=== PATIENT | female | born 1985 | race Caucasian/White ===

== ENCOUNTER 2022-12-24 15:58 | Inpatient (IN) ==
[2022-12-24] MEDS ORDERED: Dinoprostone 10 MG VAG.SUPP VAGINAL ONE (16:25)
[2022-12-24] MEDS ORDERED: Promethazine INJ(RESTRICTED) 25 MG/ML 1 ml VIAL IV PRN (16:25)
[2022-12-24] MEDS ORDERED: Lactated Ringers 1000 ml BAG 1,000 ML IV ONE (16:25)
[2022-12-24] MEDS ORDERED: Buffered Lidocaine 1% SYRIN 1 ml INTRADERM ONE (16:25)
[2022-12-24] MEDS ORDERED: Lidocaine 1% VIAL 10 MG/ML 30 ML VIAL INJ PRN (16:25)
[2022-12-24] MEDS ORDERED: Iron Sucrose 200 MG in NS 0.9% 100 ml BAG 100 ML IVPB ONE (16:32)
[2022-12-24] MEDS ORDERED: Calcium Carb (TUMS) 500 mg CHEW TAB PO PRN (16:40)
[2022-12-24 17:39] LABS: Hematocrit 27.4 % (35-45); Hemoglobin 9.1 g/dL (11.5-14.3); Mean Corpuscular Hemoglobin 29.8 pg (27-33); Mean Corpuscular Hgb Conc 33.3 g/dL (31-36); Mean Corpuscular Volume 89.5 fL (80-97); Mean Platelet Volume 10.2 fL (7.5-11.2); Platelet Count 165 10^3/uL (150-450); Red Blood Count 3.06 10^6/uL (3.63-4.92); Red Cell Distribution Width 13.2 % (12-17); White Blood Count 14.1 10^3/uL (3.8-11.8)
[2022-12-24 18:13] LABS: Urine Benzodiazepine Screen None Detected (None Detect); Urine Opiates Screen None Detected (None Detect)
[2022-12-24 18:22] LABS: Albumin 3.2 g/dL (3.2-5.2); Calcium 8.4 mg/dL (8.6-10.3); Potassium 3.8 mmol/L (3.5-5.0); Total Bilirubin 0.4 mg/dL (0.2-1.0)
[2022-12-24 18:28] LABS: Albumin/Globulin Ratio 1.5 (1-3); Creatinine, Serum 0.67 mg/dL (0.51-0.95); Globulin 2.2 g/dL (2-4); Total Protein 5.4 g/dL (6.4-8.9); eGFR CKD-EPI 115.4 (>60)
[2022-12-24 19:58] LABS: Anisocytosis 1+; Polychromasia 1+
[2022-12-24 20:01] LABS: ABS Eosinophils 0.1 10^3/uL (0.0-0.5); ABS Lymphocytes 2.7 10^3/uL (1.0-4.8); ABS Monocytes 1.5 10^3/uL (0.0-0.9); ABS Neutrophils 9.8 10^3/uL (1.5-7.6); ABS Nucleated RBC 0.02 10^3/ul; Eosinophil % 0.5 %; Lymphocyte % 19.4 %; Nucleated Red Blood Cells % 0.1 /100 WBC (0.0-0.4)
[2022-12-25] MEDS ORDERED: Oxytocin in LR 20,000 MILLI.UNIT/1,000 ML BAG IV SCH (09:20)
[2022-12-25] MEDS ORDERED: OBEPIDURAL (200 ML) 200 ML EPIDURAL ONE (11:28)
[2022-12-25] MEDS ORDERED: Lidocaine 1.5% EPI 1:200,000 30 ML SDV ONE (11:28)
[2022-12-25] MEDS: Lactated Ringers 1000 ml BAG 1,000 ML IV SCH ×2 (13:49→21:56)
[2022-12-25] MEDS ORDERED: Lactated Ringers 1000 ml BAG 1,000 ML IV ONE (14:13)
[2022-12-25] MEDS ORDERED: Phenylephrine 40 mcg/mL 10mL (400mcg) SYRINGE IV PUSH PRN ×2 (14:13)
[2022-12-25] MEDS ORDERED: Lactated Ringers 1000 ml BAG 500 ML IV PRN ×2 (14:13)
[2022-12-25] MEDS ORDERED: Sodium Citrate/Citric Acid LIQ 15 ML UDC PO PRN (14:13)
[2022-12-25 14:41] LABS: Urine Appearance Clear; Urine Bilirubin Negative (Negative); Urine Blood 1+ (Negative); Urine Color Straw; Urine Glucose Negative (Negative); Urine Ketones Negative (Negative); Urine Nitrite Negative (Negative); Urine Protein Negative (Negative); Urine Specific Gravity 1.003 (1.002-1.030); Urine Urobilinogen Negative (Negative)
[2022-12-25] MEDS: Acetaminophen IV 1 GM/100ML 1,000 MG/100 ML BAG IV SCH ×2 (14:58→21:46)
[2022-12-25] MEDS ORDERED: Lactated Ringers 1000 ml BAG 1,000 ML IV SCH (15:00)
[2022-12-25] MEDS ORDERED: OBEPIDURAL (200 ML) 200 ML EPIDURAL SCH (15:00)
[2022-12-25 15:12] LABS: Urine Bacteria Absent (Absent); Urine Red Blood Cell Trace(0-2/hpf) (Absent); Urine Squamous Epithelial Cell Present (Absent); Urine White Blood Cell Absent (Absent)
[2022-12-25] MEDS ORDERED: Bupivacaine 0.25% w/EPI 10 ML SDV ONE ×2 (15:32→21:51)
[2022-12-25] MEDS ORDERED: Bupivacaine 0.25% SDV PF 10 ML VIAL INJ ONE (21:51)
[2022-12-26] MEDS ORDERED: Bupivacaine 0.25% w/EPI 10 ML SDV ONE (03:36)
[2022-12-26] MEDS ORDERED: Tranexamic Acid 1 GM/100ML BAG 0 MG/0 ML BAG IV ONE (05:03)
[2022-12-26] MEDS ORDERED: Glycerin ADULT 2.4 gm SUPP PR PRN (05:33)
[2022-12-26] MEDS ORDERED: Dibucaine 1% OINT 28.35 GM TUBE PR PRN (05:33)
[2022-12-26] MEDS ORDERED: Witch Hazel PAD JAR TOPICAL PRN (05:33)
[2022-12-26] MEDS ORDERED: Oxytocin in LR 20,000 MILLI.UNIT/1,000 ML BAG IV SCH (05:35)
[2022-12-26] MEDS ORDERED: Bupivacaine 0.5% SDV PF 30ML VIAL ONE (06:26)
[2022-12-26] MEDS ORDERED: Lidocaine 2% PF 5 ML VIAL ONE (06:27)
[2022-12-26] MEDS ORDERED: Bupivacaine 0.5% PF 10 ML SDV VIAL INJ ONE (06:27)
[2022-12-26] MEDS: Acetaminophen IV 1 GM/100ML 1,000 MG/100 ML BAG IV SCH ×3 (06:43→21:54)
[2022-12-26] MEDS ORDERED: Iron Sucrose 200 MG in NS 0.9% 100 ml BAG 100 ML IVPB ONE (10:00)
[2022-12-27] MEDS: Acetaminophen IV 1 GM/100ML 1,000 MG/100 ML BAG IV SCH (01:23)
[2022-12-27] MEDS ORDERED: Lidocaine PATCH 5% PATCH TRANSDERM ONE (04:50)
[2022-12-27 06:49] LABS: Hemoglobin 7.8 g/dL (11.5-14.3); Mean Corpuscular Hemoglobin 30.4 pg (27-33); Mean Corpuscular Hgb Conc 33.8 g/dL (31-36); Mean Platelet Volume 10.4 fL (7.5-11.2); Platelet Count 161 10^3/uL (150-450); Red Blood Count 2.56 10^6/uL (3.63-4.92); Red Cell Distribution Width 13.2 % (12-17); White Blood Count 20.3 10^3/uL (3.8-11.8)
[2022-12-27 06:53] LABS: ABS Lymphocytes 2.4 10^3/uL (1.0-4.8); ABS Monocytes 1.6 10^3/uL (0.0-0.9); ABS Neutrophils 16.2 10^3/uL (1.5-7.6); ABS Nucleated RBC 0.02 10^3/ul; Eosinophil % 0.1 %; Lymphocyte % 11.8 %; Nucleated Red Blood Cells % 0.1 /100 WBC (0.0-0.4)
[2022-12-27] MEDS ORDERED: Tetan/Diph/Pertus SYR(Tdap) 0.5 ML SYR(BOOSTRIX) use SYR contains LATEX IM ONE (10:18)
[2022-12-27 11:45] VITALS: BP 139/78
== END 2022-12-27 12:22 | disposition home or self-care (01) | DRG 560 ==
LOC: MCHOBOUT 15:58 → MCHOB 16:28
PROVIDERS: ADMIT Registered Nurse; ATTEND Midwife